=== PATIENT | male | born 1950 | race Caucasian/White ===

== ENCOUNTER 2017-07-29 06:59 | Day surgery (SDC) | payer MEDICARE ==
--- NOTE | 2017-07-17 10:14 | HP ---
PREOPERATIVE HISTORY AND PHYSICAL: DATE OF ADMISSION/SURGERY: 07/29/17 DATE OF OFFICE VISIT: 07/15/17 ATTENDING SURGEON: Dr. Mita Heredia.* (DICTATED BY TINA WATTS) PROCEDURE: Right shoulder arthroscopic rotator cuff repair, decompression, debridement, subpectoral biceps tenodesis. CHIEF COMPLAINT: Right shoulder pain. HISTORY OF PRESENT ILLNESS: Sheng is a 66-year-old male. He was trying to pull a garden hose, when he landed backwards, landed on his elbow. It caused a lot of shoulder pain and a massive rotator cuff repair. He failed conservative measures and therefore agreed to undergo a right shoulder arthroscopic rotator cuff repair, decompression, debridement, subpectoral biceps tenodesis with Dr. Heredia on 07/29/17. PAST MEDICAL HISTORY: Hypertension, 2 heart attacks, DVT 4 years ago, AFib, high cholesterol, kidney stones, depression, history of alcohol addiction and alcohol abuse, and chronic low back pain. PAST SURGICAL HISTORY: Significant for coronary artery bypass in 2007, 4 arthroscopic left knee surgeries, open reduction internal fixation of the bilateral fibula, 3 kidney stone surgeries, dorsal column stimulator placement. The patient denies prior complications with anesthesia. MEDICATIONS: 1. Mirtazapine 15 mg take one-half to 1 tab by mouth at bedtime. 2. Sertraline 100 mg 1 by mouth every day. 3. Melatonin 10 mg 1 to 3 by mouth every night. 4. Wellbutrin XL 150 mg take 1 by mouth at night. 5. Requip 1 mg 1 by mouth in the evening. 6. Isosorbide mononitrate ER 120 mg 1 by mouth every day. 7. Simvastatin 40 mg 1 by mouth at bedtime. 8. Nitrostat 0.4 mg 1 sublingual every 5 minutes up to 3 doses as needed for chest pain. 9. Aspirin 81 mg 1 by mouth every day. 10. Toprol-XL 50 mg 1 by mouth daily. 11. Ibuprofen 200 mg 2 tabs by mouth 3 times a day. ALLERGIES: CEFAZOLIN, TRAZODONE, CYMBALTA, and ANCEF. FAMILY HISTORY: Positive for heart disease in his father, diabetes in his maternal side, and cancer in his sister, and lupus in his sister. SOCIAL HISTORY: Lives with his spouse. 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 He is a former smoker, quit 2 to 3 years ago. He smoked 1 pack a day for 25 years. He denies alcohol use. He is right hand dominant. REVIEW OF SYSTEMS: A 14-point review of systems was reviewed with the patient. Positive for current complaint, otherwise negative. Denies fever, chills, chest pain, shortness of breath. He does have a positive history of DVT 4 years ago. Negative for history of bleeding disorder. PHYSICAL EXAMINATION GENERAL: A 66-year-old well-developed, well-nourished man, in no acute distress. Alert and oriented x3. Appropriate mood and affect. VITAL SIGNS: Height 73, weight 176, pulse 68, blood pressure 126/86, respiratory rate 16, BMI 23.2. HEENT: Normocephalic, atraumatic. PERRLA. Throat clear. NECK: Supple. PULMONARY: Lungs are clear to auscultation bilaterally. No wheezing, rhonchi, or rales. CARDIO: Regular rate and rhythm. S1 and S2. No murmurs, gallops, or rubs. No edema. ABDOMEN: Positive bowel sounds, soft, nontender. NEURO: Alert and oriented x3. Cranial nerves grossly intact. MUSCULOSKELETAL: Right upper extremity: Skin is intact. No warmth or erythema. Tenderness over the anterior joint line, subacromial space. Nontender AC joint. Forward flexion 130, passive 160, abduction is 90, actively 140, passively with pain. External rotation is 65, internal rotation to lumbar spine. +4/5 strength on rotator cuff testing. +2 radial pulse. Sensation intact to light touch distally. DIAGNOSTIC STUDIES: CT arthrogram of the right shoulder revealed full- thickness supraspinatus and infraspinatus rotator cuff tear with retraction. IMPRESSION: Right shoulder rotator cuff tear. PLAN: The patient is scheduled to undergo a right shoulder arthroscopic rotator cuff repair, decompression, debridement, subpectoral biceps tenodesis with Dr. Heredia on 07/29/17. He had a recent stress test and will be cleared by Dr. Bowens, his delphi developer, and his PCP this coming week. Percocet was sent to the patient's pharmacy for postop pain management. He will follow up with Dr. Heredia in 10 to 14 days for followup and suture removal. TINA WATTS [id number]/[facility] #: [id number] [facility]ITAL[facility]
[~2017-07-29 06:59] MED LIST: Buffered Lidocaine 0.9% SYRIN* 5 ML/SYR SYRINGE INTRADERM ONE; Famotidine IV* 10 MG/ML 2 ML (20 mg) IV ONE
[2017-07-29] MEDS ORDERED: Clindamycin 900 MG IVPREMIX(* 900 MG/50 ML SDV IV ONE (07:05)
[2017-07-29] MEDS ORDERED: Famotidine IV* 10 MG/ML 2 ML (20 mg) ONE (07:05)
[2017-07-29] MEDS ORDERED: Buffered Lidocaine 0.9% SYRIN* 5 ML/SYR SYRINGE ONE (07:05)
[2017-07-29] MEDS ORDERED: oxyCODONE/Acetamin 5/325 MG* TAB PO PRN (07:27)
[2017-07-29] MEDS ORDERED: fentaNYL* 50 MCG/ML 2 ML VIAL (100 MCG VIAL) IV PRN (07:27)
[2017-07-29] MEDS ORDERED: Scopolamine 1.5 mg* PATCH TRANSDERM PRN (07:27)
[2017-07-29] MEDS ORDERED: Naloxone* 0.4 MG/ML 1 ML VIAL IV PRN (07:27)
[2017-07-29] MEDS ORDERED: DiMENhydriNATE IV* 50 MG/ML VIAL IV PUSH PRN (07:27)
[2017-07-29] MEDS ORDERED: Morphine INJ* 2 MG/ML 1 ML CARPUJECT IV PRN (07:27)
[2017-07-29] MEDS ORDERED: PROCHLORPERAZINE INJ 5 MG/ML 2 ML VIAL IV PRN (07:27)
[2017-07-29] MEDS ORDERED: Bupivacaine 0.25% SDV* 30 ML ONE ×2 (07:39→08:56)
[2017-07-29] MEDS ORDERED: Midazolam* 1 MG/ML 10 ML VIAL (10 MG) ONE (08:28)
[2017-07-29] MEDS ORDERED: KETAMINE HCL* 50 MG/ML 10 ML VIAL ONE (08:28)
[2017-07-29] MEDS ORDERED: fentaNYL* 50 MCG/ML 2 ML VIAL (100 MCG VIAL) ONE ×2 (08:28→11:23)
[2017-07-29] MEDS ORDERED: Lidocaine 2% PF * 5 ML VIAL ONE (10:10)
[2017-07-29] MEDS ORDERED: Ondansetron INJ* 2 MG/ML VIAL ONE (10:10)
[2017-07-29] MEDS ORDERED: Propofol* 10 MG/ML 20 ML BTL IV PUSH ONE (10:10)
[2017-07-29] MEDS ORDERED: EPHEDrine (Pressors)* 50 MG/ML VIAL ONE (10:10)
[2017-07-29] MEDS ORDERED: Dexamethasone IV* 4 MG/ML 1 ML (4 MG) ONE (10:10)
[2017-07-29] MEDS ORDERED: Phenylephrine INJ* 10 MG/ML 1 ML VIAL (10 MG) ONE (10:10)
[2017-07-29] MEDS ORDERED: Ketorolac INJ* 30 MG/ML 1 ML VIAL ONE (10:10)
[2017-07-29] MEDS ORDERED: Metoprolol Tartrate IV* 1 MG/ML 5 ML VIAL ONE (11:52)
[2017-07-29 14:05] VITALS: BP 117/78
[2017-08-01] MEDS ORDERED: Scopolamine PATCH Remove* 1 NOTE MISC PATCH OFF ONE (07:29)
--- NOTE | 2017-08-03 16:05 | OP ---
CC: Philippe Kern MD * DATE OF OPERATION: 07/29/17 - SDS DATE OF : 48 SURGEON: Mita Heredia MD ASSISTANTS: 1. TINA Rausch 2. Fernandez Martinez. ANESTHESIOLOGIST: Dr. Lyle. ANESTHESIA: General, interscalene block. PRE-OP DIAGNOSIS: Right shoulder large tear of the rotator cuff with biceps tendonitis. POST-OP DIAGNOSIS: Right shoulder massive tear. OPERATIVE PROCEDURE: Right shoulder arthroscopy with: 1. Repair of massive rotator cuff tear involving the supraspinatus and infraspinatus tendons with significant retraction approximately medial to the glenoid in a double row fashion, subacromial decompression with acromioplasty. 2. Arthroscopic biceps tenodesis. 3. Chondroplasty of the glenohumeral joint. COMPLICATIONS: None. ESTIMATED BLOOD LOSS: Minimal. IMPLANTS USED: Three 4.75 Healicoils and two Multifixes, one 2.8-mm Q-Fix. INDICATIONS: Sheng Guevara is a 66-year-old, right-hand dominant male, who on 02/27 fell, landed on his elbow, sustained shoulder injury. He was diagnosed with a full-thickness tear of the rotator cuff involving the infraspinatus and supraspinatus tendon. There was evidence of a massive tear. At that time, reconfirmed on CT scan. Risks and benefits of surgery versus nonoperative treatment were discussed at length. The patient was advised to consider surgical treatment sooner rather than later due to the risk of atrophy and the decreased healing rate with massive tears. After extensive discussion of the risks and benefits of surgery including but are not limited to bleeding, infection, damage to nerves, vessels, surrounding structures, wound nonhealing, persistent pain, need for further surgery, scarring, stiffness, incomplete relief of symptoms, risk of anesthesia, retear, risk of DVT, he has elected to proceed with surgery. He underwent preoperative medical risk authorization prior to surgery. DESCRIPTION OF PROCEDURE: The patient was greeted in the preoperative area by the attending surgeon. Correct extremity was marked and consent was confirmed. The patient underwent interscalene nerve block by the anesthesiologist, after which he was brought back to the operating suite. He was transferred to the operating table. He underwent general anesthesia endotracheal intubation after which he was placed in the left lateral decubitus position with an axillary roll. All bony prominences were padded. The right arm was draped unsterile with 10 pounds of traction. The right shoulder was then prepped and draped in the usual sterile fashion beginning with chlorhexidine soap, scrub and alcohol wipe and a final prep of ChloraPrep. After appropriate surgical pause indicating side, site, procedure, administration of antibiotics, the posterolateral portal was made sharply with 11 blade. Scope was introduced to the joint. Joint was examined. There was chondrosis of the glenohumeral joint with unstable flaps. The anterior portal was made in an outside- in fashion and a shaver was used to debride this back. The inferior recess was intact. There was full-thickness massive tear with retraction medial to the glenoid that was apparent. The subscapularis was intact, had a mild amount of partial thickness tearing but no full-thickness tears, but the supraspinatus was torn, even anterior footprints, where the supra and subscap overlapped. Biceps had obvious tearing and fraying. It was then tagged and the thought was do an arthroscopic biceps tenodesis in conjunction with the rotator cuff repair. Once the chondroplasty was done, then the anterior, posterior, superior labral fraying was debrided back using the shaver. Scope was introduced in the subacromial space. The subacromial space was examined. There was abundant synovitis present. Portions of the rotator cuff as appeared to be a large L-shaped tear involving the anterior portion of supraspinatus extending all the way to the infraspinatus. There is a small portion of that that remain intact. There was abundant bursa that was present that was carefully removed. This was tedious but necessary to allow for full mobilization. Once the bursectomy had been complete, the undersurface of the acromion was skeletonized using electrocautery device and acromioplasty was done using a 4.0 oval eboni. All excess debris was removed from this portion of the case. Attention was directed to the greater tuberosity, which was prepared in the usual fashion with electrocautery device with a rasp and with a eboni to gently decorticate. A microfracture was performed to allow for several points of fixation to allow for bone marrow aspirate and allow for further healing at different points to along the rotator cuff repair. The cuff then was carefully mobilized. This was where it was determined that it was a very large L-shaped tear. The cuff tissue anteriorly was poor, perhaps it flapped over itself and therefore it was very hard to pull back, but after releasing adhesions using electrocautery as well as blunt devices, the tear was able to be pulled back to where it was supposed to. There was more strain on the anterior portion of the tear; however, than on the posterior portion of the supraspinatus as well as the infraspinatus tendon. Once the cuff was fully mobilized, anchor placement begun. At this point, attention was directed to the biceps. The bicipital groove was identified and the biceps was able to be subluxed over. The groove was then prepared in the usual fashion and the 2.8 mm Q-Fix drill guide was then placed through a stab incision and drilled in the level of the bicipital groove. The Q - Fix anchor was then passed with excellent purchase. The sutures were then passed arthroscopically through the biceps tendon at the level of the biceps. Once this was passed, then a suture with configuration with sliding lock stitch , the biceps was then tenotomized proximal to that and the stump was also debrided back. There was no further area of impingement in the biceps stump. Prior to tenotomy, the sutures were tied down using arthroscopic knot tie. At this point, attention was directed to the rotator cuff. After the tuberosity was prepared, three 4.75 Healicoil anchors were placed through separate stab incision along the medial row anteriorly in the middle and posteriorly. Sutures was then passed through the tendon in horizontal mattress configuration with a few of the sutures passed in simple configuration. Once the sutures were passed, it was then tied down sequentially beginning anteriorly at the very anterior aspect of the supraspinatus and then sequentially posterior. There was coverage to the level of the greater tuberosity and posteriorly there was over coverage but at the very anterior portion there was coverage of the chondral surface, however, at the very edge of the chondral surface indicating this was very hard to mobilize tear. Once the sutures were passed and tied down, sutures were then passed through Multifix anchors. One was placed laterally but anteriorly, one was placed laterally and posteriorly. This allowed for compression and backup fixation to the rotator cuff repair. Final images were obtained. One suture was placed at the pedicle with interval down to allow any attempt to try to prevent any propagation from right where the rotator interval was since the supraspinatus tendon did not have of the subscap as well, so a simple suture was passed in the [id number] fashion. This helped to make sure that the humeral head was completed covered. Final images were obtained. All fluid and debris was removed from the shoulder. The wounds were copiously irrigated with sterile saline. The portals were closed with 3-0 nylon. Sterile dressings were applied. An UltraSling was applied. The patient was awoken from anesthesia and transferred to the PACU in stable condition. POSTOPERATIVE PLAN: He will be nonweightbearing. He will be discharged on pain medications. DVT prophylaxis considered but deferred due to no previous personal or family history. I will see the patient back in 10 to 14 days. [id number]/[facility] #: [id number] MTDD
== END 2017-07-29 14:02 | disposition home or self-care (01) ==
LOC: OR 06:59
PROVIDERS: ATTEND Orthopaedic Surgery
DX: M75.121 Complete rotator cuff tear or rupture of right shoulder, not specified as traumatic (principal); M75.21 Bicipital tendinitis, right shoulder; W18.39XA Other fall on same level, initial encounter; Y92.9 Unspecified place or not applicable; I10 Essential (primary) hypertension; I25.2 Old myocardial infarction; Z95.1 Presence of aortocoronary bypass graft; Z86.718 Personal history of other venous thrombosis and embolism; Z79.82 Long term (current) use of aspirin; F10.21 Alcohol dependence, in remission
CPT/HCPCS: C1713; C1776; J1100; J1885; J2250; J2405; J2704; J3010; J3490

== ENCOUNTER 2017-11-09 07:47 | Day surgery (SDC) | payer MEDICARE ==
--- NOTE | 2017-11-03 20:34 | HP ---
PREOPERATIVE HISTORY AND PHYSICAL: DATE OF ADMISSION/SURGERY: 11/09/17 ATTENDING SURGEON: Mita Heredia MD* (dictated by TINA Watts). PROCEDURE: Right total shoulder arthroscopic rotator cuff repair, possible regeneten patch. CHIEF COMPLAINT: Right shoulder pain. HISTORY OF PRESENT ILLNESS: Sheng is a 66-year-old male who presents to the clinic 3 months, 1 week, 1 day status post right shoulder arthroscopic massive rotator cuff repair to supraspinatus and infraspinatus tendon as well as biceps tenodesis and chondroplasty performed on 07/29/17. He had lack of range of motion and increased pain postoperatively. Therefore, an MRI was performed. He had a re- tear of the cuff and has failed conservative measures and therefore , agreed to undergo a right shoulder arthroscopic rotator cuff repair, possible regeneten patch with Dr. Heredia on 11/09/17. PAST MEDICAL HISTORY: 1. Hypertension. 2. History of AMI. 3. DVT 40 years ago. 4. Afib. 5. High cholesterol. 6. Kidney stones. 7. Depression. 8. History of alcohol addiction and abuse. 9. Chronic low back pain. PAST SURGICAL HISTORY: 1. Coronary artery bypass in 2007. 2. Four arthroscopic left knee surgeries. 3. Open reduction internal fixation of the bilateral fibula. 4. Three kidney stone surgeries. 5. Dorsal column stimulator. 6. Right shoulder rotator cuff repair. The patient denies prior complications with anesthesia. MEDICATIONS: 1. Percocet 5/325 mg 1 to 2 every 4 to 6 hours as needed for postop pain. 2. Mirtazapine 15 mg take 0.5 to 1 tab by mouth at bedtime. 3. Sertraline 100 mg take 1 by mouth every day. 4. Melatonin 10 mg 1 to 3 tabs by mouth every night. 5. Wellbutrin 150 mg 1 tab by mouth every day. 6. Requip 1 mg 1 by mouth in the evening. 7. Isosorbide mononitrate 120 mg 1 by mouth every day. 8. Simvastatin 40 mg 1 by mouth at bedtime. 9. Nitrostat 0.4 mg 1 sublingual every 5 minutes up to 3 doses as needed for chest pain. 10. Aspirin 81 mg 1 by mouth every day. 11. Toprol XL 50 mg 1 by mouth daily. 12. Tylenol 8 hours 2 tabs by mouth twice a day. ALLERGIES: 1. CEFAZOLIN. 2. CYMBALTA. 3. TRAZODONE. FAMILY HISTORY: Positive for heart disease in his father. Diabetes on the maternal side. Cancer in sister, lupus in sister. SOCIAL HISTORY: He lives with his spouse. 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 He is a former smoker, quit 2 to 3 years ago. He smoked 1 pack a day for 25 years. He denies alcohol use. He is right hand dominant. REVIEW OF SYSTEMS: A 14-point review of systems was reviewed with the patient. Positive for current complaint, otherwise negative. Denies fever, chills, chest pain, shortness of breath. Positive for history of DVT 40 years ago. Negative for history of bleeding disorders. PHYSICAL EXAMINATION GENERAL: A 66-year-old well-developed, well-nourished male, in no acute distress. Alert and oriented x3. Appropriate mood and affect. Appropriate balance and coordination of the upper extremities. VITAL SIGNS: Height 73, weight 175. Blood pressure 142/80, respiratory rate 20. BMI 23.1. HEENT: Normocephalic, atraumatic. PERRLA. Throat clear. NECK: Supple. PULMONARY: Lungs clear to auscultation bilaterally. No wheezing, rhonchi, or rales. CARDIO: Regular rate and rhythm. S1 and S2. No murmurs, gallops, or rubs. No edema. ABDOMEN: Positive bowel sounds. Soft, nontender. MUSCULOSKELETAL: Right upper extremity, well-healed surgical incision. No warmth or erythema. Forward flexion 120, abduction 80 with a catch, external rotation to 50, internal rotation to the posterior hip, +4/5 strength to rotator cuff testing, +2 radial pulse. Sensation is intact to light touch distally. NEURO: Alert and oriented x3. Cranial nerves grossly intact. STUDIES: MR arthrogram of the right shoulder revealed massive re-tear of the rotator cuff in the supraspinatus and infraspinatus tendon. IMPRESSION: Right shoulder rotator cuff tear. PLAN: The patient is scheduled to undergo a right shoulder arthroscopic rotator cuff repair, possible regeneten patch with Dr. Heredia on 11/09/17 since he has failed his first rotator cuff repair. He will follow up 10 to 14 days postoperative followup and suture removal. Tylenol around the clock, ibuprofen , oxycodone, and 3 days of extended release morphine will be used for postoperative pain control and clindamycin will be used for antibiotic prophylaxis since he has had a prior surgery. TINA WATTS [id number]/[facility] #: [id number] [facility]ITAL[facility]
[~2017-11-09 07:47] MED LIST changes: +Dexamethasone IV* 4 MG/ML 1 ML (4 MG) IV SLOW PU ONE; +Dexamethasone IV* 4 MG/ML 1 ML (4 MG) ONE; +Famotidine IV* 10 MG/ML 2 ML (20 mg) ONE
[2017-11-09] MEDS ORDERED: Clindamycin 900 MG IVPREMIX(* 900 MG/50 ML SDV IV ONE (07:56)
[2017-11-09] MEDS ORDERED: Bupivacaine 0.25% SDV* 30 ML ONE (09:37)
[2017-11-09] MEDS ORDERED: ROPIVACAINE 5 MG/ML 30 ML BTL (0.5%) ONE (09:46)
[2017-11-09] MEDS ORDERED: fentaNYL* 50 MCG/ML 2 ML VIAL (100 MCG VIAL) ONE ×2 (09:55→11:35)
[2017-11-09] MEDS ORDERED: Midazolam* 1 MG/ML 5 ML VIAL (5 MG) ONE (09:55)
[2017-11-09] MEDS ORDERED: Ketorolac INJ* 30 MG/ML 1 ML VIAL ONE (10:31)
[2017-11-09] MEDS ORDERED: Propofol* 10 MG/ML 20 ML BTL IV PUSH ONE (10:31)
[2017-11-09] MEDS ORDERED: Naloxone* 0.4 MG/ML 1 ML VIAL IV PRN (12:29)
[2017-11-09 13:04] VITALS: BP 114/92
--- NOTE | 2017-11-10 08:50 | OP ---
CC: PCP, Philippe Kern MD * DATE OF OPERATION: 11/09/17 [facility] DATE OF : 48 SURGEON: Mita Heredia MD ASSISTANTS: Sabrina Gutierrez. An hearing and speech assistant was needed for the entirety of the case to help with positioning, retraction, deployment of anchors and was utilized throughout all portions of the case. ANESTHESIOLOGIST: Dr. Simons. ANESTHESIA: General and interscalene block. PRE-OP DIAGNOSIS: Re-tear of previous right rotator cuff repair. POST-OP DIAGNOSIS: Re-tear of previous right rotator cuff repair. OPERATIVE PROCEDURE: Right shoulder revision arthroscopy with rotator cuff repair and REGENETEN augmentation. COMPLICATION: None. ESTIMATED BLOOD LOSS: Minimal. IMPLANTS USED: Two 4.75 Helicoils, 2 Multi-Fixes and 1 REGENETEN patch medium. INDICATIONS: Sheng Guevara is a 66-year-old male who had a previous right shoulder rotator cuff repair in July of this year. It was a massive rotator cuff repair. He initially had fallen in February the year before. He initially did okay with surgery, but had persistent issues afterwards. He had possible questionable compliance. He in the postop period struggled, continued to have persistent pain, therefore, an arthrogram was done that demonstrated a re-tear of the rotator cuff. It was not as significant and as large as his previous tear, but after discussion of risks and benefits to operative intervention versus conservative treatment, he elected to proceed with operative intervention. Risks include, but are not limited to bleeding, infection, damage to nerves, vessels, surrounding structures, wound nonhealing, persistent pain, need for surgery, scarring, stiffness, incomplete relief of symptoms, and risks of anesthesia. OPERATIVE NOTE: The patient was greeted in the preoperative area by the attending surgeon. Correct extremity was marked and consent was confirmed. Then underwent interscalene nerve block by the anesthesiologist after which he was brought back to operating suite where he was placed in supine position on the operating table. After general anesthesia, he was placed in the left lateral decubitus position with all bony prominences padded, he was secured with a peg board and axillary roll. The right arm was draped unsterile with 10 pounds of traction. The right shoulder was prepped and draped in the usual sterile fashion, beginning with chlorhexidine soap scrub and alcohol wipe and final prep with ChloraPrep. After appropriate surgical pause indicating side, site, and procedure, administration of antibiotics, the incision in postero-lateral portal was made sharply with 11 blade. The scope was introduced into the joint and the joint was examined. There was abundant synovitis in the glenohumeral joint but there were no large unstable flaps. The undersurface of the rotator cuff had evidence of partial thickness and full thickness tearing. The sutures were visualized. There was evidence of some partial healing however. The scope was then placed in the subacromial space. The abundant adhesions from the bursal adhesions required release using an electrocautery device. The cuff again was found to not be massively retracted, which was a good sign, but the soft tissue bursal adhesions needed to be released. This exposed the sutures and the tearing of the rotator cuff again. He did not sustain the same extent of tearing as he did in his first surgery. Scissors and biters were used to remove the previous sutures and strands. It took some time as there were abundant adhesions. There were abundant sutures that needed to be removed. These were done with arthroscopic biters and rich. The rotator cuff was then visualized there, it was debrided back to stable layer. There was evidence of sutures that were passed as a [id number] fixed for the infraspinatus, that were not involved were left. After this was complete, the cuff was then carefully mobilized. The greater tuberosity was repaired in usual fashion with the rasp as well as a 4-0 oval eboni to allow for gentle decortication. Two 4.75 Helicoils were then placed through separate stab incisions at the medial row and was placed with excellent purchase. Sutures were passed in horizontal mattress configuration and the last and most posterior one was passed into the infraspinatus as well as the supraspinatus tendon for side to side fixation. The starting awl was then used to do small microfracture again to allow for bony bleeding healing. The sutures were then tied down using arthroscopic knot- tying technique and one strand from each knot was then passed through Multi-Fix that was placed anterolaterally and the second one was placed posterolaterally. This allowed for a double row fixation with compression of the footprint. At this point, the REGENETEN patch was brought to the field, size medium. This was then placed using arthroscopic visualization. Approximately 6 tendon carlee were used as well as 2 bony carlee. This allowed for fixation and securing of the patch. Final images were obtained. The wounds were copiously irrigated with sterile saline and the portals were closed with 2-0 nylon in interrupted fashion. Sterile dressings were applied as well as the Cryo/Cuff and UltraSling. He was awoken from anesthesia and transferred to PACU in stable condition POSTOPERATIVE PLAN: He will be nonweightbearing. He will be on the sling for approximately 6 weeks. He will be discharged on pain medication as well as antibiotics. DVT prophylaxis was considered, but deferred due to no previous personal or family history. I will see the patient back in 14 days. [id number]/[facility] #: [id number] JAIME
== END 2017-11-09 13:20 | disposition home or self-care (01) ==
LOC: OREAST 07:47
PROVIDERS: ATTEND Orthopaedic Surgery
DX: S46.011D Strain of muscle(s) and tendon(s) of the rotator cuff of right shoulder, subsequent encounter (principal); Z95.1 Presence of aortocoronary bypass graft; I25.2 Old myocardial infarction; Z86.718 Personal history of other venous thrombosis and embolism; I48.91 Unspecified atrial fibrillation; E78.00 Pure hypercholesterolemia, unspecified; F10.21 Alcohol dependence, in remission; Z87.891 Personal history of nicotine dependence; I10 Essential (primary) hypertension; J45.909 Unspecified asthma, uncomplicated; G89.18 Other acute postprocedural pain; F32.9 Major depressive disorder, single episode, unspecified; Y92.9 Unspecified place or not applicable; X58.XXXD Exposure to other specified factors, subsequent encounter
CPT/HCPCS: C1713; J1100; J1885; J2250; J2704; J2795; J3010

== ENCOUNTER 2017-12-04 16:34 | Emergency (ER) | payer MEDICARE ==
[2017-12-04 17:32] LABS: ABS Basophils 0.1 10^3/ul (0-0.2); ABS Eosinophils 0.2 10^3/ul (0-0.6); ABS Lymphocytes 1.9 10^3/ul (1.0-4.8); ABS Monocytes 0.7 10^3/ul (0-0.8); ABS Neutrophils 4.7 10^3/ul (1.5-7.7); ABS Nucleated RBC 0 10^3/ul; Eosinophil % 3.1 % (0-6); Hematocrit 43 % (42-52); Hemoglobin 14.5 g/dl (14.0-18.0); Lymphocyte % 24.7 % (25-47); Mean Corpuscular HGB Conc 34 g/dl (31-36); Mean Corpuscular Hemoglobin 29 pg (27-31); Mean Corpuscular Volume 84 fL (80-94); Mean Platelet Volume 6.7 um3 (7.4-10.4); Nucleated Red Blood Cells % 0.1; Platelet Count 308 10^3/ul (150-450); Red Blood Count 5.09 10^6/ul (4.00-5.40); Red Cell Distribution Width 14 % (10.5-15); White Blood Count 7.5 10^3/ul (3.5-10.8)
--- NOTE | 2017-12-04 17:33 | RAD ---
INDICATION: Cough with blood. COMPARISON: Comparison is made with a prior study from August 16, 2014. TECHNIQUE: Dual-energy PA views of the chest were obtained. FINDINGS: The patient appears to be status post coronary artery bypass surgery. The heart is within normal limits in size. The lungs are hyperinflated and clear. No pleural effusion is seen. Note is made of dorsal column stimulator leads which project over the midline. IMPRESSION: POSTSURGICAL CHANGES, NO EVIDENCE FOR ACUTE FINDING.
[2017-12-04 17:44] LABS: INR 0.86 (0.77-1.02)
[2017-12-04 17:54] LABS: EGFR Non-African American 75.4 (>60)
[2017-12-04 19:33] VITALS: BP 139/79
--- NOTE | 2017-12-07 10:30 | ED ---
Jose Guadalupe Alvarez Angela, scribed for Salomon Arroyo MD on 12/04/17 at 1701 . Respiratory - HPI Summary HPI Summary: This pt is a 66 y/o male presenting to [facility] c/o coughing up blood for the past 10 days. Pt reports he first noticed hemoptysis 10 days ago, described as small specks of blood in his sputum. He notes that in the past couple of days there has been an increase in blood specks in his sputum, mostly in the mornings. Also states his sputum is blood tinged and sometimes has "solid blood" in it. Denies fever, chills, vomiting, hematemesis, chest pain, SOB , night sweats, epistaxis, sore throat, sinus pain. PMHx includes Gustafson's esophagus (diagnosed in 2014), HTN, high cholesterol, chronic back pain. Pt reports he was treated by the pain clinic with morphine for chronic back pain and was vomiting for 5 years. He states he was admitted to the hospital multiple times for uncontrollable vomiting. - History of Current Complaint Chief Complaint: EDBleedingDisorder Stated Complaint: ABNORMAL BLEEDING Hx Obtained From: Patient Onset/Duration: Lasting Days, Still Present Timing: Constant Pain Intensity: 1 Character: Cough (Productive) Sputum Amount: Scant Sputum Color: Glazier-Tinged, Red Specks, Small Clots Aggravating Factor(s): Nothing Alleviating Factor(s): Nothing Associated Signs and Symptoms: Negative - Allergy/Home Medications Allergies/Adverse Reactions: Allergies Allergy/AdvReac Type Severity Reaction Status Date / Time duloxetine [From Cymbalta] Allergy Severe rapid Verified 12/04/17 16:40 heartrate trazodone Allergy Severe priatism Verified 12/04/17 16:40 cefazolin AdvReac Severe Rash Verified 12/04/17 16:40 Home Medications: Home Medications Acetaminophen TAB* [Tylenol TAB*] 325 mg PO Q4H PRN 12/04/17 [History Confirmed 12/04/17] Aspirin EC TAB* [Ecotrin EC Low Dose 81 MG*] 81 mg PO DAILY 12/04/17 [History Confirmed 12/04/17] BuPROPion XL* [Bupropion XL*] 150 mg PO DAILY 12/04/17 [History Confirmed ] Isosorbide Mononitrate ER TAB* [Imdur ER TAB*] 120 mg PO DAILY 12/04/17 [ History Confirmed 12/04/17] Melatonin (NF) 40 mg PO BEDTIME 12/04/17 [History Confirmed 12/04/17] Metoprolol Succinate XL TAB* [Toprol XL TAB*] 75 mg PO DAILY 12/04/17 [History Confirmed 12/04/17] Mirtazapine TAB* [Remeron TAB*] 15 mg PO BEDTIME 12/04/17 [History Confirmed ] Sertraline* [Zoloft*] 100 mg PO DAILY 12/04/17 [History Confirmed 12/04/17] Simvastatin (NF) [Zocor (NF)] 40 mg PO DAILY 12/04/17 [History Confirmed ] rOPINIRole TAB* [Requip TAB*] 1 mg PO DAILY 12/04/17 [History Confirmed 12/04/17 ] PMH/Surg Hx/FS Hx/Imm Hx Endocrine/Hematology History: Reports: Hx Anemia Denies: Hx Diabetes Cardiovascular History: Reports: Hx Angina - none now, Hx Coronary Artery Disease, Hx Hypercholesterolemia, Hx Hypertension - W/MEDS, Other Cardiovascular Problems/Disorders - Atrial Fib, hx of DVT 40 years ago-1977 Denies: Hx Congestive Heart Failure, Hx Pacemaker/ICD GI History: Denies: Other GI Disorders History: Reports: Hx Kidney Stones - x3 none recent Denies: Hx Renal Disease Musculoskeletal History: Reports: Hx Arthritis, Hx Back Problems, Hx Bursitis - none recent, Hx Tendonitis, Other Musculoskeletal History - PRESENT PROBLEM : CHRONIC LOW BACK PAIN W/RADIATING PAIN-LEGS Denies: Hx Osteoporosis Sensory History: Reports: Hx Contacts or Glasses - glasses Denies: Hx Cataracts, Hx Glaucoma, Hx Hearing Aid Opthamlomology History: Reports: Hx Contacts or Glasses - glasses Denies: Hx Cataracts, Hx Glaucoma Neurological History: Reports: Other Neuro Impairments/Disorders - DORSAL COLUMN STIMULATOR 11/29/14 Psychiatric History: Reports: Hx Anxiety, Hx Depression - on meds, Other Psychiatric Issues/Disorders - PTSD Denies: Hx Eating Disorder, Hx Panic Disorder, Hx of Violent Episodes Against Others - Cancer History Hx Chemotherapy: No - Surgical History Surgery Procedure, Year, and Place: Tonsillectomy;Arthroscopy x4 Left Knee; Right Kidney Stent;Lithotripsy;CABG x3 VESSELS- 2007; ORIF PRANAV.ANKLES(20+YRS AGO );[place] [facility] [place], and 2010 - (PROMUS ELEMENT- MRI SAFE 3T ) AND 2009( TAXUS AND PROMUS - MRI SAFE 3T); Dorsal Column Stimulator [place] [facility] [place] right shoulder arthroscopic massive rotator cuff repair 07/2017 Hx Anesthesia Reactions: No Infectious Disease History: No Infectious Disease History: Denies: Traveled Outside the [place] in Last 30 Days - Family History Known Family History: Positive: Cardiac Disease - father, Diabetes - mother Family History: CA and lupus - Social History Alcohol Use: None Substance Use Type: Reports: None Substance Use Comment - Amount & Last Used: morphine Hx Tobacco Use: Yes Smoking Status (MU): Never Smoked Tobacco Type: Cigarettes Amount Used/How Often: smoked for 25 years 1ppd Length of Time of Smoking/Using Tobacco: 20 Have You Smoked in the Last Year: Yes - pt quit in 2013, recently started back up Review of Systems Negative: Fever, Chills, Skin Diaphoresis Negative: Epistaxis, Sore Throat, Other - sinus pain Negative: Chest Pain Positive: Cough. Negative: Shortness Of Breath Negative: Vomiting - or hematemesis Skin: Negative Neurological: Negative All Other Systems Reviewed And Are Negative: Yes Physical Exam - Summary Physical Exam Summary: VITAL SIGNS: Reviewed. GENERAL: Patient is a well-developed and nourished male who is lying comfortable in the stretcher. Patient is not in any acute respiratory distress. HEAD AND FACE: No signs of trauma. No ecchymosis, hematomas or skull depressions. No sinus tenderness. EYES: PERRLA, EOMI x 2, No injected conjunctiva, no nystagmus. EARS: Hearing grossly intact. Ear canals and tympanic membranes are within normal limits. MOUTH: Oropharynx within normal limits. NECK: Supple, trachea is midline, no adenopathy, no JVD, no carotid bruit, no c- spine tenderness, neck with full ROM. CHEST: Symmetric, no tenderness at palpation LUNGS: Clear to auscultation bilaterally. No wheezing or crackles. CVS: Regular rate and rhythm, S1 and S2 present, no murmurs or gallops appreciated. ABDOMEN: Soft, non-tender. No signs of distention. No rebound no guarding, and no masses palpated. Bowel sounds are normal. EXTREMITIES: FROM in all major joints, no edema, no cyanosis or clubbing. NEURO: Alert and oriented x 3. No acute neurological deficits. Speech is normal and follows commands. SKIN: Dry and warm Triage Information Reviewed: Yes Vital Signs On Initial Exam: Initial Vitals Temp Pulse Resp BP Pulse Ox 98.4 F 76 16 146/108 96 12/04/17 16:36 12/04/17 16:36 12/04/17 16:36 12/04/17 16:36 12/04/17 16:36 Vital Signs Reviewed: Yes Diagnostics - Vital Signs Vital Signs Temp Pulse Resp BP Pulse Ox 12/04/17 16:36 98.4 F 76 16 146/108 96 - Laboratory Result Diagrams: 12/04/17 17:24 12/04/17 17:24 Lab Statement: Any lab studies that have been ordered have been reviewed, and results considered in the medical decision making process. - Radiology Chest XR Xray Interpretation: No Acute Changes - IMPRESSION: Postsurgical changes, no evidence for acute finding. Dr. Arroyo has reviewed this radiology report. Radiology Interpretation Completed By: Radiologist - EKG 17:01 Cardiac Rate: NL - at 66 bpm EKG Rhythm: Sinus Rhythm EKG Interpretation: No ST elevations. Re-Evaluation - Re-Evaluation First Eval Re-Evaluation Time: 19:22 Comment: I reviewed the lab and CXR results with the pt. He will be discharged home. Disposition - Course Assessment/Plan: Pt is a 66 y/o male, with hx of Gustafson's, who presents with coughing up blood for the past 10 days. Pt reports he first noticed hemoptysis 10 days ago, described as small specks of blood in his sputum. He notes that in the past couple of days there has been an increase in blood specks in his sputum , mostly in the mornings. Also states his sputum is blood tinged and sometimes has "solid blood" in it. Denies fever, chills, vomiting, hematemesis, chest pain , SOB , night sweats, epistaxis, sore throat, sinus pain. Test results without any significant abnormalities. Chest XR shows no pneumonia. EKG shows normal sinus rhythm without ST elevations. The pt did not have any coughing episodes in the ED. Therefore I believe pt has a stable hemoptysis. He will be discharged home with follow up from PCP in 2-3 days. I discussed all the findings and test results with the patient. All questions were answered to patient satisfaction. There were no further complaints or concerns. He is instructed to return to the ED for any worsening or new symptoms. Pt is hemodynamically stable, alert and oriented x3. - Diagnoses Provider Diagnoses: Hemoptysis Discharge - Sign-Out/Discharge Documenting (check all that apply): Discharge/Admit/Transfer - Discharge - Discharge Plan Condition: Stable Disposition: HOME Patient Education Materials: Hemoptysis (ED) Referrals: Philippe Kern MD [Primary Care Provider] - 3 Days Additional Instructions: Please follow up with your primary care provider. RETURN TO THE ED FOR ANY NEW OR WORSENING SYMPTOMS. The documentation as recorded by the Jose Guadalupe mac Angela accurately reflects the service I personally performed and the decisions made by me, Salomon Arroyo MD.
== END 2017-12-04 19:33 | disposition home or self-care (01) ==
LOC: ED 16:34
DX: R04.2 Hemoptysis (principal); K22.70 Barrett's esophagus without dysplasia; I10 Essential (primary) hypertension; E78.00 Pure hypercholesterolemia, unspecified; G89.29 Other chronic pain; I25.119 Atherosclerotic heart disease of native coronary artery with unspecified angina pectoris; I48.91 Unspecified atrial fibrillation; Z95.1 Presence of aortocoronary bypass graft; Z87.891 Personal history of nicotine dependence; Z79.82 Long term (current) use of aspirin; Z79.899 Other long term (current) drug therapy; Z88.8 Allergy status to other drugs, medicaments and biological substances
CPT/HCPCS: 36415; 71045; 80053; 82550; 82553; 83605; 83880; 84484; 85025; 85610; 85730; 86140; 93005; 99283

== ENCOUNTER 2018-02-10 09:57 | Day surgery (SDC) | payer MEDICARE ==
--- NOTE | 2018-01-28 20:42 | HP ---
PREOPERATIVE HISTORY AND PHYSICAL: DATE OF ADMISSION/SURGERY: 02/10/18 DATE OF OFFICE VISIT: 01/27/18 ATTENDING SURGEON: Dr. Mita Heredai.* (DICTATED BY TINA WATTS) PROCEDURE: Right shoulder arthroscopic rotator cuff repair, possible REGENETEN patch. CHIEF COMPLAINT: Right shoulder. HISTORY OF PRESENT ILLNESS: Sheng is a 67-year-old male who presents to the clinic for followup of right shoulder pain. He has had a recent revision rotator cuff repair with REGENETEN patch and had a recent injury that caused a re-tear of the rotator cuff. He has failed conservative measures and therefore has agreed to undergo a right shoulder arthroscopic rotator cuff repair, possible REGENETEN patch with Dr. Heredia on 02/10/18. PAST MEDICAL HISTORY: 1. Hypertension. 2. History of AMI. 3. DVT 40 years ago. 4. AFib. 5. High cholesterol. 6. Kidney stones. 7. Depression. 8. History of alcohol abuse and addiction. 9. Chronic low back pain. PAST SURGICAL HISTORY: 1. Coronary artery bypass in 2007. 2. Four left knee arthroscopic surgeries. 3. ORIF of the bilateral fibula. 4. Three kidney stone surgeries. 5. Dorsal column stimulator placement. 6. Right shoulder rotator cuff repair. 7. Rotator cuff repair revision. He denies prior complications with anesthesia. MEDICATIONS: 1. Toprol XL 100 mg 1 by mouth every day. 2. Ramipril 1 by mouth every day 2.5 mg. 3. Mirtazapine 15 mg take one-half to 1 tab by mouth at bedtime. 4. Sertraline 100 mg 1 tab by mouth every day. 5. Melatonin 10 mg 1 to 3 tabs every night. 6. Wellbutrin 150 mg 1 tab by mouth every day. 7. Requip 1 mg 1 tab by mouth in the evening. 8. Isosorbide mononitrate 1 by mouth every day. 9. Simvastatin 1 by mouth at bedtime. 10. Nitrostat 1 sublingual every 5 minutes up to 3 doses as needed for chest pain. 11. Aspirin 1 by mouth every day. 12. Tylenol q.8 hours 2 tabs twice a day. ALLERGIES: CEFAZOLIN, TRAZODONE, and CYMBALTA. FAMILY HISTORY: Positive for heart disease in his father. Diabetes on the maternal side. Cancer in sister and lupus in sister. SOCIAL HISTORY: He lives with his spouse. 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 He is a former smoker, quit 2 to 3 years ago. He smoked 1 pack per day for 25 years. He denies alcohol use or illegal drug use. He is right hand dominant. REVIEW OF SYSTEMS: A 14-point review of systems was reviewed with the patient. Positive for current complaint, otherwise negative. Denies fever, chills, chest pain, shortness of breath. Positive for history of DVT 40 years ago. Denies history of bleeding disorder. PHYSICAL EXAMINATION GENERAL: A 67-year-old well-developed, well-nourished male, in no acute distress. Alert and oriented x3. Appropriate mood and affect. Appropriate balance and coordination of the upper extremities. VITAL SIGNS: Height 73, weight 183. Pulse 76, blood pressure 140/90, respiratory rate 18. BMI 24.1. HEENT: Normocephalic, atraumatic. PERRLA. Throat clear. NECK: Supple. PULMONARY: Lungs are clear to auscultation bilaterally. No wheezing, rhonchi, or rales. CARDIO: Regular rate and rhythm. S1 and S2. No murmurs, gallops, or rubs. No edema. ABDOMEN: Positive bowel sounds. Soft, nontender. MUSCULOSKELETAL: Right upper extremity, skin in intact, well-healed surgical incision. No warmth or erythema. Passive forward flexion to 100 degrees, stiffness to range of motion, otherwise +4/5 saw superintendent strength, +2 radial pulse. Sensation is intact to light touch distally. Left upper extremity, skin is intact. No warmth or erythema. Nontender to palpation. Full pain-free range of motion. NEURO: Alert and oriented x3. Cranial nerves grossly intact. Sensation intact to light touch. DIAGNOSTIC STUDIES: CT arthrogram of the right shoulder was independently reviewed by Dr. Heredia and revealed full-thickness tear of the supraspinatus tendon. IMPRESSION: Right shoulder rotator cuff tear. PLAN: The patient is scheduled to undergo a right shoulder arthroscopic rotator cuff repair, possible REGENETEN patch with Dr. Heredia on 02/10/18. He will follow up with Dr. Heredia 10 to 14 days postop and Percocet will be used for postoperative management. TINA WATTS [id number]/[facility] #: [id number] [facility] CENTERAnahi
[~2018-02-10 09:57] MED LIST changes: -Dexamethasone IV* 4 MG/ML 1 ML (4 MG) IV SLOW PU ONE; -Dexamethasone IV* 4 MG/ML 1 ML (4 MG) ONE; +Dexamethasone TAB* 4 MG PO ONE; +DiMENhydriNATE IV* 50 MG/ML VIAL IV PUSH PRN; -Famotidine IV* 10 MG/ML 2 ML (20 mg) ONE; +Morphine INJ* 2 MG/ML 1 ML SYRINGE (TWO MG - NEW SYRINGE VERSION) IV PRN; +Naloxone* 0.4 MG/ML 1 ML VIAL IV PRN; +Ondansetron TAB* 4 MG PO ONE; +PROCHLORPERAZINE INJ 5 MG/ML 2 ML VIAL IV PRN; +Scopolamine 1.5 mg* PATCH TRANSDERM PRN; +fentaNYL* 50 MCG/ML 2 ML VIAL (100 MCG VIAL) IV PRN; +oxyCODONE/Acetamin 5/325 MG* TAB PO PRN
[2018-02-10] MEDS ORDERED: Famotidine IV* 10 MG/ML 2 ML (20 mg) ONE (10:07)
[2018-02-10] MEDS ORDERED: Ondansetron ODT TAB* 4 MG ONE (10:08)
[2018-02-10] MEDS ORDERED: Dexamethasone TAB* 4 MG ONE (10:08)
[2018-02-10] MEDS ORDERED: Clindamycin 900 MG IVPREMIX(* 900 MG/50 ML SDV IV ONE (10:08)
[2018-02-10] MEDS ORDERED: Midazolam* 1 MG/ML 5 ML VIAL (5 MG) ONE (11:13)
[2018-02-10] MEDS ORDERED: KETAMINE HCL* 50 MG/ML 10 ML VIAL ONE (11:13)
[2018-02-10] MEDS ORDERED: fentaNYL* 50 MCG/ML 2 ML VIAL (100 MCG VIAL) ONE (11:13)
[2018-02-10] MEDS ORDERED: Propofol* 10 MG/ML 20 ML BTL IV PUSH ONE (13:27)
[2018-02-10] MEDS ORDERED: EPHEDrine (Pressors)* 50 MG/ML VIAL ONE (13:27)
[2018-02-10] MEDS ORDERED: Phenylephrine INJ* 10 MG/ML 1 ML VIAL (10 MG) ONE (13:27)
[2018-02-10] MEDS ORDERED: ROPIVACAINE 5 MG/ML 30 ML BTL (0.5%) ONE (13:27)
[2018-02-10] MEDS ORDERED: Lidocaine 2% PF * 5 ML VIAL ONE (13:27)
[2018-02-10 15:12] VITALS: BP 125/67
--- NOTE | 2018-02-11 00:54 | OP ---
CC: PCP, Philippe Kern MD * DATE OF OPERATION: 02/10/18 - [facility] DATE OF : 48 SURGEON: Mita Heredia MD BROADCAST JOURNALIST: TINA Rausch. An diver assistant was needed for the entirety of the case to help with positioning, retraction and was utilized throughout all portions of the case. ANESTHESIOLOGIST: Dr. Lyle. ANESTHESIA: General, interscalene block. PRE-OP DIAGNOSIS: Right shoulder recurrent tear of the previous re-repaired rotator cuff. POST-OP DIAGNOSIS: Right shoulder recurrent tear of the previous re-repaired rotator cuff. OPERATIVE PROCEDURE: 1. Right shoulder arthroscopy with debridement and revision rotator cuff repair. 2. Removal of foreign body x3. COMPLICATIONS: None. ESTIMATED BLOOD LOSS: Minimal. IMPLANTS: One 4.75 Healicoil, one MultiFix. INDICATIONS: Sheng Guevara is a 67-year-old man who has undergone a previous rotator cuff repair with biceps tenodesis which he then failed and had a revision surgery with repair and augmentation with REGENETEN patch. He was doing well and then he was reinjured in physical therapy and CT scan demonstrated re-tear. Risks and benefits of surgery were discussed at length and included, but not limited to bleeding, infection, damage to nerves, vessels , surrounding structures, wound nonhealing, persistent pain, need for further surgery, scarring, stiffness, incomplete relief of symptoms, risks of anesthesia , risk of not being able to repair the rotator cuff and he has elected to proceed. DESCRIPTION OF PROCEDURE: The patient was greeted in the preoperative area by the attending surgeon. Correct extremity was marked and the consent was confirmed. The patient underwent interscalene nerve block by anesthesiologist after which he was brought back into the operating suite. He was placed in supine position on operating table. He then underwent general anesthesia, endotracheal intubation. The patient was then placed in right lateral decubitus position with an axillary roll. All bony prominences were padded. He was secured with peg board. His right arm was draped unsterile with 10-pounds traction. The right shoulder was then prepped and draped in usual sterile fashion beginning with chlorhexidine soap, scrub, and alcohol wipe and a final prep with ChloraPrep. After appropriate surgical pause indicating site, side, procedure and administration of antibiotics, the standard postero-lateral portal was made sharply with an 11-blade. The scope was introduced into the joint. The joint was examined. The scope was positioned into the glenohumeral joint. There were grade 1 and 2 changes in glenohumeral joint. There was some synovitis as well in the joint. The anterior portal was made in an out-side in fashion. The shaver was used to debride back the synovitis carefully and the undersurface of the rotator supraspinatus tendon was identified and was found to have partial thickness tearing with lots of tension on the sutures. An 18- gauge needle was then used to tri where the tear was and this was marked with PDS suture. At this point, attention was directed to subacromial space. The scope was introduced into the subacromial space. There is abundant synovitis that was present and there was abundant scar tissue as well. This took at least 20 to 30 minutes to get through the scar tissue and try to identify where was rotator cuff, where was scar and where the orientation. Once this was done, a new moderate U-shape tear was identified and the tissue quality was poor. There was evidence of previous sutures that had been placed and then we began mobilizing the cuff and there was lysis of adhesion to remove the abundant scar tissue that was placed both subacromially as well as articularly. With this done, there was evidence of side- to-side tear between the supraspinatus tendon. At this point, the decision was made to try to continue to mobilize the tendon and then do a xfol-by-gwoh repair of the supraspinatus tendon. These helped close down some of the U-shaped tear. This helped a little bit but then the cuff was very difficult to mobilize. More adhesions were released. It was quite tedious as well as required an electro- autery device. The decision was made to try to repair this again, even though the quality was not so good and the 4.75 Healicoil was placed with excellent purchase. Sutures were passed through the tendon in horizontal simple mattress configuration and then tied down. This still left a small area that was not covering the humeral head. At this point, a second free suture was then used to do a [id number] repair which I closed down the gap to see if there is biologic tissue that can be placed. This was then tied down and all strands of the sutures were then passed through a MultiFix anchor for lateral row fixation. Final images were obtained. Sterile dressings were applied. An UltraSling was applied. He was awoken from anesthesia, transferred to PACU in stable condition. POSTOPERATIVE PLAN: He will be nonweightbearing. He will be discharged on pain medications, antibiotics due to this being revision surgery. DVT prophylaxis was considered, but deferred due to no previous personal or family history. I will see the patient back in 10 to 14 days. His only option after this if he fails is reverse shoulder arthroplasty. [id number]/[facility] #: [id number] JAIME
[2018-02-13] MEDS ORDERED: Scopolamine PATCH Remove* 1 NOTE MISC PATCH OFF ONE (06:05)
== END 2018-02-10 15:34 | disposition home or self-care (01) ==
LOC: OR 09:57
PROVIDERS: ATTEND Orthopaedic Surgery
DX: S46.011A Strain of muscle(s) and tendon(s) of the rotator cuff of right shoulder, initial encounter (principal); X50.0XXA Overexertion from strenuous movement or load, initial encounter; Y93.89 Activity, other specified; Y92.89 Other specified places as the place of occurrence of the external cause; G89.18 Other acute postprocedural pain; Z87.891 Personal history of nicotine dependence; I10 Essential (primary) hypertension; Z95.1 Presence of aortocoronary bypass graft; I25.10 Atherosclerotic heart disease of native coronary artery without angina pectoris; I48.91 Unspecified atrial fibrillation; I25.2 Old myocardial infarction
CPT/HCPCS: 29827; G8918; A9270-GY; C1713; J2250; J2704; J2795; J3010; J8540

== ENCOUNTER 2019-03-07 11:18 | Emergency (ER) | payer MEDICARE ==
--- NOTE | 2019-03-07 11:48 | UC ---
Psychiatric Complaint HPI - HPI Summary HPI Summary: 68-year-old male who is extremely anxious today. His is on life support in [facility] at [facility]. He is very distraught because an extended family member, a cousin, was somehow able to become the healthcare proxy for his and has been making decisions on her behalf although this patient who is her , and other family members do not want her to be the healthcare proxy. He is not suicidal and not homicidal however he is extremely anxious and states "I feel like I'm going to explode". The patient has a history of cardiac problems and hypertension although he has been taking his medicine regularly. He states that he drove from [place] to here today to his primary care providers who could not see him today. He was then going to drive to the emergency room for evaluation but pulled in here instead. He has no other complaints. He denies any chest pain, no shortness of breath. - History Of Current Complaint Chief Complaint: UCPsych Stated Complaint: ANXIETY Time Seen by Provider: 03/07/19 11:31 Hx Obtained From: Patient ?: No Onset/Duration: Gradual Onset, Lasting Weeks - His has had a lung transplant one or 2 years ago and since then she has been in and out of the hospital frequently which has caused him a lot of anxiety and concern for her. With her being on life support, which is something he states she would not want , he is extremely distraught and anxious because of the cousin who is involved in the decision-making process. Timing: Constant Severity Initially: Moderate Severity Currently: Moderate Character: Fearful, Anxious, Angry - Patient is angry at the cousin who was involved in the decision-making process. He is full because of his 's impending demise. Aggravating Factor(s): Recent Stress Alleviating Factor(s): Nothing Associated Signs And Symptoms: Sleep Disturbance, Appetite Change - Patient states he's not been sleeping well and not been eating very well. He is not suicidal and not homicidal. - Allergies/Home Medications Allergies/Adverse Reactions: Allergies Allergy/AdvReac Type Severity Reaction Status Date / Time duloxetine [From Cymbalta] Allergy Severe rapid Verified 03/07/19 12:22 heartrate trazodone Allergy Severe priatism Verified 03/07/19 12:22 cefazolin AdvReac Severe Rash Verified 03/07/19 12:22 PMH/Surg Hx/FS Hx/Imm Hx Previously Healthy: Yes Cardiovascular History: Cardiac Disease, Hypertension Psychological History: Anxiety, Depression - Surgical History Surgical History: Yes Surgery Procedure, Year, and Place: Tonsillectomy;. Arthroscopy x4 Left Knee;. Right Kidney Stent 3 or 4 times;Lithotripsy, [facility] [place]. 2007 CABG x3 VESSELS, [facility]. ORIF PRANAV.ANKLES(20+YRS AGO);. [place] [facility], and 2010 - (PROMUS ELEMENT- MRI SAFE 3T) AND 2009 & 2011HEART CATHER[place] [facility]. 12/2014 Dorsal Column Stim[place] [facility]. 10/2017 RIGHT SHOULDER ROTATOR CUFF REPAIR, DECOMPRESSION, DEBRIDEMENT, [facility]. 10/2017 RIGHT SHOULDER REPA[place] WITH PATCH[place] [facility] - Family History Known Family History: Positive: Cardiac Disease - father, Diabetes - mother Family History: CA and lupus - Social History Alcohol Use: None Substance Use Type: Marijuana Substance Use Comment - Amount & Last Used: OCCASIONAL FOR BACK PAINS Smoking Status (MU): Light Every Day Tobacco Smoker Type: Cigarettes Amount Used/How Often: 1/2ppd Length of Time of Smoking/Using Tobacco: 20 Have You Smoked in the Last Year: Yes - pt quit in 2013, recently started back up When Did the Patient Quit Smoking/Using Tobacco: 2011 Household Exposure Type: Cigarettes - Immunization History Most Recent Influenza Vaccination: 2013 Most Recent Tetanus Shot: last 10 years Most Recent Pneumonia Vaccination: 2012 Review of Systems All Other Systems Reviewed And Are Negative: Yes Psychological: Positive: Anxious Is Patient Immunocompromised?: No Physical Exam Triage Information Reviewed: Yes Appearance: Well-Appearing, No Pain Distress, Well-Nourished Vital Signs: Initial Vital Signs Temp 98.8 F 03/07/19 11:21 Pulse 79 03/07/19 11:21 Resp 18 03/07/19 11:21 BP 185/104 03/07/19 11:21 Pulse Ox 100 03/07/19 11:21 Vital Signs Reviewed: Yes Respiratory: Positive: Lungs clear, Normal breath sounds, No respiratory distress, No accessory muscle use Cardiovascular: Positive: RRR, No Murmur, Pulses Normal, Brisk Capillary Refill Musculoskeletal Exam: Normal Neurological Exam: Normal Psychological: Positive: Other: - Patient is fairly anxious about the entire situation of his and the family member who is involved in the decision- making process. At times he is teary-eyed because of the impending demise of his was only support. Skin Exam: Normal Psych Complaint Course/Dx - Course Course Of Treatment: The patient is comfortable here. His blood pressure was rechecked prior to discharge. He is agreeable to going to the emergency room by private car for an evaluation. He refuses ambulance and I feel that he is stable enough to drive to the emergency room. - Differential Dx/Diagnosis Provider Diagnosis: Anxiety Discharge ED - Sign-Out/Discharge Documenting (check all that apply): Patient Departure All imaging exams completed and their final reports reviewed: No Studies - Discharge Plan Condition: Fair Disposition: HOME-RECOMMEND TO ED Referrals: Salomon Loyola MD [Primary Care Provider] - Additional Instructions: After the evaluation by the nurse practitioner, it is recommended that you go to the emergency room for further evaluation of your anxiety where you should receive additional testing that can be completed in the emergency department. It is recommended that you go directly to the emergency department. This evaluation may include blood work or imaging. This testing will be directed and decided by the provider that evaluates you within the emergency department. If you have any other concerns while you are driving to the emergency room, or if you feel lightheaded or faint, please sheeting puller and call 911. - Billing Disposition and Condition Condition: FAIR Disposition: Home-Recommend to ED
[2019-03-07 11:57] VITALS: BP 147/88
== END 2019-03-07 11:56 | disposition home health service (06) ==
LOC: UCEAST 11:18
DX: F41.9 Anxiety disorder, unspecified (principal); I10 Essential (primary) hypertension; F32.9 Major depressive disorder, single episode, unspecified; Z95.1 Presence of aortocoronary bypass graft; F17.210 Nicotine dependence, cigarettes, uncomplicated
CPT/HCPCS: 99212; G0463

== ENCOUNTER 2019-03-07 12:14 | Emergency (ER) | payer MEDICARE ==
--- NOTE | 2019-03-07 14:40 | ED ---
Psychiatric Complaint - HPI Summary HPI Summary: 68 year old M [facility] complains of severe stress since yesterday. Patient states his was placed on life support at [facility] recently. Patient states that his 's cousin is her health care proxy which is stressful for him because he cannot carry out her wishes. Patient states he drove back to [facility] yesterday from [facility]. Patient denies suicidal ideation, chest pain. Symptoms aggravated by nothing. Symptoms alleviated by nothing. - History Of Current Complaint Chief Complaint: EDPsychosocial Time Seen by Provider: 03/07/19 14:33 Hx Obtained From: Patient Onset/Duration: Lasting Days - 1, Still Present Timing: Constant Aggravating Factor(s): Nothing Alleviating Factor(s): Nothing - Allergies/Home Medications Allergies/Adverse Reactions: Allergies Allergy/AdvReac Type Severity Reaction Status Date / Time duloxetine [From Cymbalta] Allergy Severe rapid Verified 03/07/19 12:22 heartrate trazodone Allergy Severe priatism Verified 03/07/19 12:22 cefazolin AdvReac Severe Rash Verified 03/07/19 12:22 Home Medications: Home Medications Ramipril CAP* [Altace CAP*] 2.5 mg PO DAILY 03/07/19 [History Confirmed 03/07/19 ] PMH/Surg Hx/FS Hx/Imm Hx Endocrine/Hematology History: Reports: Hx Anemia - HX OF AFTER THE BYPASS SURGERY Denies: Hx Diabetes Cardiovascular History: Reports: Hx Angina - none now, Hx Coronary Artery Disease - CABG-2007; CARDIAC CATH X 3 WITH STENTS X2, Hx Hypercholesterolemia, Hx Hypertension, Other Cardiovascular Problems/Disorders - Atrial Fib, hx of DVT 40 years ago-1977 Denies: Hx Congestive Heart Failure, Hx Pacemaker/ICD GI History: Reports: Other GI Disorders - DOUGHERTY'S ESOPHAGUS History: Reports: Hx Kidney Stones - x3 none recent Denies: Hx Renal Disease Musculoskeletal History: Reports: Hx Arthritis - HX OF, Hx Back Problems, Hx Bursitis - none recent, Hx Tendonitis - HX OF NO PROBLEMS NOW, Other Musculoskeletal History - PRESENT PROBLEM : CHRONIC LOW BACK PAIN W/RADIATING PAIN-LEGS Denies: Hx Osteoporosis Sensory History: Reports: Hx Contacts or Glasses - glasses Denies: Hx Cataracts, Hx Glaucoma, Hx Hearing Aid Opthamlomology History: Reports: Hx Contacts or Glasses - glasses Denies: Hx Cataracts, Hx Glaucoma Neurological History: Reports: Other Neuro Impairments/Disorders - DORSAL COLUMN STIMULATOR 11/29/14 Psychiatric History: Reports: Hx Anxiety, Hx Depression - on meds, Other Psychiatric Issues/Disorders - PTSD Denies: Hx Eating Disorder, Hx Panic Disorder, Hx of Violent Episodes Against Others - Cancer History Hx Chemotherapy: No - Surgical History Surgery Procedure, Year, and Place: Tonsillectomy;. Arthroscopy x4 Left Knee;. Right Kidney Stent 3 or 4 times;Lithotripsy, [facility] [place]. 2007 CABG [facility]3 [facility]SELS, [facility]. ORIF PRANAV.ANKLES(20+YRS AGO);. HEART CATH W/STENTS (AT [facility]) 10/28/11, and 2010 - (PROMUS ELEMENT- MRI SAFE 3T) AND 2009 & 2011HEART CATHERIZATION WITH STENT, [facility]. 12/2014 Dorsal Column Stimulator, [facility]. 10/2017 RIGHT SHOULDER ROTATOR CUFF REPAIR, DECOMPRESSION, DEBRIDEMENT, [facility]. 10/2017 RIGHT SHOULDER REPAIR WITH PATCH, [facility] Hx Anesthesia Reactions: No Infectious Disease History: No Infectious Disease History: Denies: Traveled Outside the [place] in Last 30 Days - Family History Known Family History: Positive: Cardiac Disease - father, Diabetes - mother Family History: CA and lupus - Social History Alcohol Use: None Hx Substance Use: Yes Substance Use Type: Reports: Marijuana Substance Use Comment - Amount & Last Used: OCCASIONAL FOR BACK PAINS Hx Tobacco Use: Yes Smoking Status (MU): Light Every Day Tobacco Smoker Type: Cigarettes Amount Used/How Often: 1/2ppd Length of Time of Smoking/Using Tobacco: 20 Have You Smoked in the Last Year: Yes - pt quit in 2013, recently started back up Review of Systems Negative: Chest Pain Positive: Other - severe stress; NEG: SI All Other Systems Reviewed And Are Negative: Yes Physical Exam - Summary Physical Exam Summary: Appearance: The patient is well-nourished in no acute distress and in no acute pain. Skin: The skin is warm and dry, and skin color reflects adequate perfusion. HEENT: The head is normocephalic and atraumatic. The pupils are equal and reactive. The conjunctivae are clear and without drainage. Nares are patent and without drainage. Mouth reveals moist mucous membranes, and the throat is without erythema and exudate. The external ears are intact. The ear canals are patent and without drainage. The tympanic membranes are intact. Neck: The neck is supple with full range of motion and non-tender. There are no carotid bruits. There is no neck vein distension. Respiratory: Chest is non-tender. Lungs are clear to auscultation and breath sounds are symmetrical and equal. Cardiovascular: Heart is regular rate and rhythm. There is no murmur or rub auscultated. There is no peripheral edema and pulses are symmetrical and equal. Abdomen: The abdomen is soft and non-tender. There are normal bowel sounds heard in all four quadrants and there is no organomegaly palpated. Musculoskeletal: There is no back tenderness noted. Extremities are non-tender with full range of motion. There is good capillary refill. There is no peripheral edema or calf tenderness elicited. Neurological: Patient is alert and oriented to person, place and time. The patient has symmetrical motor strength in all four extremities. Cranial nerves are grossly intact. Deep tendon reflexes are symmetrical and equal in all four extremities. Psychiatric: The patient is agitated Triage Information Reviewed: Yes Vital Signs On Initial Exam: Initial Vitals Temp Pulse Resp BP Pulse Ox 98.7 F 76 20 177/119 96 03/07/19 12:18 03/07/19 12:18 03/07/19 12:18 03/07/19 12:18 03/07/19 12:18 Vital Signs Reviewed: Yes Diagnostics - Vital Signs Vital Signs Temp Pulse Resp BP Pulse Ox 03/07/19 14:18 98.7 F 67 18 140/107 98 03/07/19 12:18 98.7 F 76 20 177/119 96 - Laboratory Result Diagrams: 03/07/19 14:53 03/07/19 14:53 Lab Statement: Any lab studies that have been ordered have been reviewed, and results considered in the medical decision making process. Re-Evaluation - Re-Evaluation First Eval Re-Evaluation Time: 16:19 Change: Unchanged Comment: patient is still anxious after first dose of lorazepam. will give second dose Second Eval Re-Evaluation Time: 17:27 Change: Improved Comment: patient feel better and would like to go home. patient is agreeable to discharge Course/Dx - Course Course Of Treatment: Mr. Guevara presents saying that he doesn't know what to do. His is ill and there is nothing he can do about it and it's making him anxious. He takes some psychiatric medications at this point. He denies any suicidal ideation. He states he is just frustrated and doesn't know where to turn. He is visibly anxious and agitated in the room. I gave him Ativan which helped only a little bit and therefore I gave him a second dose. After that he felt much improved and felt like he could handle the situation. I recommended a short prescription while he he is sorting through the acute issue with his . - Differential Dx/Clinical Impression Provider Diagnosis: Anxiety Discharge ED - Sign-Out/Discharge Documenting (check all that apply): Patient Departure - Discharge Patient Received Moderate/Deep Sedation with Procedure: No - Discharge Plan Condition: Stable Disposition: HOME Prescriptions: LORazepam TAB(*) [Ativan TAB(*)] 1 mg PO Q6H PRN #20 tab MDD 4 PRN Reason: Pain Patient Education Materials: Anxiety (ED) Referrals: Salomon Loyola MD [Primary Care Provider] - 2 Days Additional Instructions: Follow up with your primary care provider in the next 2-3 days. Return to the Emergency Department for new or worsening symptoms. - Billing Disposition and Condition Condition: STABLE Disposition: Home - Attestation Statements Document Initiated by Roquee: Yes Documenting Scribe: Tiffani Yan Provider For Whom Asad is Documenting (Include Credential): Shankar Haq MD Scribe Attestation: ITiffani, scribed for Shankar Haq MD on 03/07/19 at 1919. Scribe Documentation Reviewed: Yes Provider Attestation: The documentation as recorded by the Tiffani mac accurately reflects the service I personally performed and the decisions made by me, Shankar Haq MD Status of Scribe Document: Viewed
[2019-03-07] MEDS ORDERED: LORazepam TAB(*) 1 MG PO ONE ×2 (14:41→16:19)
[2019-03-07 15:00] LABS: ABS Basophils 0.1 10^3/ul (0-0.2); ABS Eosinophils 0.1 10^3/ul (0-0.6); ABS Lymphocytes 1.6 10^3/ul (1.0-4.8); ABS Monocytes 0.7 10^3/ul (0-0.8); ABS Neutrophils 5.3 10^3/ul (1.5-7.7); Eosinophil % 1.6 %; Hematocrit 42 % (42-52); Hemoglobin 14.3 g/dL (14.0-18.0); Lymphocyte % 21.1 %; Mean Corpuscular HGB Conc 34 g/dL (31-36); Mean Corpuscular Hemoglobin 29 pg (27-31); Mean Corpuscular Volume 86 fL (80-94); Mean Platelet Volume 6.7 fL (7.4-10.4); Platelet Count 304 10^3/uL (150-450); Red Blood Count 4.87 10^6 /uL (4.18-5.48); Red Cell Distribution Width 14 % (10-15); White Blood Count 7.8 10^3/uL (3.5-10.8)
[2019-03-07 15:19] LABS: ALT 16 U/L (7-52); AST 20 U/L (13-39); Albumin 4.4 g/dL (3.2-5.2); Albumin/Globulin Ratio 1.7 (1-3); Alkaline Phosphatase 67 U/L (34-104); Anion Gap 7 mmol/L (2-11); Blood Urea Nitrogen 22 mg/dL (6-24); CO2 Carbon Dioxide 25 mmol/L (22-32); Calcium 9.7 mg/dL (8.6-10.3); Chloride 106 mmol/L (101-111); EGFR African American 89.6 (>60); EGFR Non-African American 74.1 (>60); Globulin 2.6 g/dL (2-4); Glucose 78 mg/dL (70-100); Potassium 4.6 mmol/L (3.5-5.0); Sodium 138 mmol/L (135-145)
[2019-03-07 15:57] LABS: Acetaminophen < 15 mcg/mL; Alcohol < 10 mg/dL (<10); Salicylate < 2.50 mg/dL (<30); TSH (Thyroid Stimulating Horm) 1.29 mcIU/mL (0.34-5.60)
[2019-03-07 17:38] VITALS: BP 129/79
== END 2019-03-07 17:30 | disposition home or self-care (01) ==
LOC: ED 12:14
DX: F41.9 Anxiety disorder, unspecified (principal); D64.9 Anemia, unspecified; I25.119 Atherosclerotic heart disease of native coronary artery with unspecified angina pectoris; E78.00 Pure hypercholesterolemia, unspecified; I10 Essential (primary) hypertension; I48.91 Unspecified atrial fibrillation; F32.9 Major depressive disorder, single episode, unspecified; Z95.1 Presence of aortocoronary bypass graft; Z95.5 Presence of coronary angioplasty implant and graft; Z86.718 Personal history of other venous thrombosis and embolism; F17.210 Nicotine dependence, cigarettes, uncomplicated; Z79.899 Other long term (current) drug therapy; Z88.1 Allergy status to other antibiotic agents; Z88.8 Allergy status to other drugs, medicaments and biological substances
CPT/HCPCS: 36415; 80053; 80320; 80329; 84443; 85025; 99282; A9270-GY; G0480